=== PATIENT | female | born 1965 | race Caucasian/White ===

== ENCOUNTER → 2019-11-15 | Outpatient (REF) | payer OTHER | LOC: M SFHCLERA 15:15 | PROVIDERS: ATTEND Nurse Practitioner Family | DX: J10.1 Influenza due to other identified influenza virus with other respiratory manifestations (principal) ==

== ENCOUNTER 2020-10-02 10:40 | Emergency (ER) | payer OTHER ==
[~2020-10-02] VITALS: Ht 160 cm; Wt 86.2 kg
--- OUTSIDE RECORDS SUMMARY | 2020-10-02 10:47 | CCD ---
Author Author [facility] Address Unknown Phone Unavailable Support Name Relationship Address Phone Renuka RUTHERFORD Next Of Kin [address] [place] [address] MEKA RUTHERFORD ECON [address] [place] [address] Unavailable Re-disclosure Warning The records that you are about to access may contain information from federally-assisted alcohol or drug abuse programs. If such information is present, then the following federally mandated warning applies: This information has been disclosed to you from records protected by federal confidentiality rules (42 CFR part 2). The federal rules prohibit you from making any further disclosure of this information unless further disclosure is expressly permitted by the written consent of the person to whom it pertains or as otherwise permitted by 42 CFR part 2. A general authorization for the release of medical or other information is NOT sufficient for this purpose. The Federal rules restrict any use of the information to criminally investigate or prosecute any alcohol or drug abuse patient.The records that you are about to access may contain highly sensitive health information, the redisclosure of which is protected by Article 27-F of the [facility] Public Health law. If you continue you may have access to information: Regarding HIV / AIDS; Provided by facilities licensed or operated by the [facility] Office of Mental Health; or Provided by the [facility] Office for People With Developmental Disabilities. If such information is present, then the following [facility] mandated warning applies: This information has been disclosed to you from confidential records which are protected by state law. State law prohibits you from making any further disclosure of this information without the specific written consent of the person to whom it pertains, or as otherwise permitted by law. Any unauthorized further disclosure in violation of state law may result in a fine or fci sentence or both. A general authorization for the release of medical or other information is NOT sufficient authorization for further disc losure. Allergies and Adverse Reactions Type Description Substance Reaction Status Data Source(s ) Sulfa (for allergy use only) Sulfa (for allergy use only) Mercedes lfa (for allergy use only) Rash Active eCW1 ([facility]) Encounters Encounter Providers Location Date Indications Data Source(s ) Outpatient [address] [facility] [address] 03/28/2020 12:00:00 AM EDT eCW1 ([facility]) [facility] [address] [place] [address] 11/15/2019 12:00:00 AM EDT eCW1 ([facility]) Medications Medication Brand Name Start Date Product Form Dose Route Admi nistrative Instructions Pharmacy Instructions Status Indications Reaction Description Data Source(s) 12 HR dextromethorphan polistirex 6 MG/M L Extended Release Suspension [Delsym] Delsym 30 MG/5ML Delsym 30 MG/5ML 11/15/2019 12:00:00 AM EDT active 10 ml as needed eCW1 ([facility]) Flonase 50 MCG/ACT Flonase 50 MCG/ACT 11/15/2019 12:00:00 AM EDT active 1 spray in each nostril eCW1 ([facility]) Flonase 50 MCG/ACT Flonase 50 MCG/ACT 11/15/2019 12:00:00 AM EDT 1.0 {spray_in_each_nostril} active Flonase 50 MCG/ACT eCW1 ([facility]) cetirizine hydrochloride 10 MG Oral Tablet Cetirizine HCl 10 MG Cetirizine HCl 10 MG 11/15/2019 12:00:00 AM EDT active 1 tablet as needed eCW1 ([facility]) cetirizine hydrochloride 10 MG Oral Tablet Cetirizine HCl 10 MG Cetirizine HCl 10 MG 11/15/2019 12:00:00 AM EDT 1.0 {tablet_as_needed} active Cetirizine HCl 10 MG eCW1 ([facility]) Insurance Providers Payer name Policy type / Coverage type Policy ID Covered constitution party ID Covered constitution party's relationship to jerez Policy Jerez Plan Information [facility] [id number] Surgeries/Procedures Procedure Description Date Indications Data Source(s) STREP A ASSAY W/OPTIC 11/15/2019 12:00:00 AM EDT eCW1 ([facility]) Influenza A+B 11/15/2019 12:00:00 AM EDT eCW1 ([facility]) Results ID Date Data Source LRY HAND COMPLETE 03/28/2020 02:40:56 AM EDT eCW1 ([facility]) Name Value Range Interpretation Code Description Data Fariha rce(s) Supporting Document(s) LRY HAND COMPLETE eCW1 ([facility]) ID Date Data Source GATS (NEGATIVE STREP SCREEN) 11/15/2019 12:00:00 AM EDT eCW1 ([facility]) Name Value Range Interpretation Code Description Data Fariha rce(s) Supporting Document(s) FULL REPORT IN LAB NOTES (eCW and [facility]). GATS CULTURE (NEG STREP SCR) eCW1 ([facility]) Procedure Social History Code Duration Value Status Description Data Source(s ) Smoking 03/28/2020 12:00:00 AM EDT Never Smoker completed Never S moker eCW1 ([facility]) Vital Signs ID Date Data Source UNK Name Value Range Interpretation Code Description Data Source(s) Diastolic blood pressure 110 mm[Hg] 110 mm[Hg] eCW1 ([facility]) Systolic blood pressure 156 mm[Hg] 156 mm[Hg] e CW1 ([facility]) Body temperature 97.8 [degF] 97.8 [degF] eCW1 ( [facility]) Respiratory rate 16 /min 16 /min eCW1 ([facility]) Heart rate 75 /min 75 /min eCW1 ([facility]) Body mass index (BMI) [Ratio] 34.76 kg/m2 34.76 kg/m2 eCW1 ([facility]) Body height 61 [in_i] 61 [in_i] eCW1 ([facility]) Body weight 184 [lb_av] 184 [lb_av] eCW1 ([facility]) Diastolic blood pressure 82 mm[Hg] 82 mm[Hg] eCW1 ([facility]) Systolic blood pressure 136 mm[Hg] 136 mm[Hg] e CW1 ([facility]) Body temperature 101.6 [degF] 101.6 [degF] eCW1 ([facility]) Respiratory rate 18 /min 18 /min eCW1 ([facility]) Heart rate 88 /min 88 /min eCW1 ([facility]) Body mass index (BMI) [Ratio] 32.12 kg/m2 32.12 kg/m2 eCW1 ([facility]) Body height 61 [in_us] 61 [in_us] eCW1 ([facility]) Body weight Measured 170 [lb_av] 170 [lb_av] eC W1 ([facility]) Patient Treatment Plan of Care Planned Activity Planned Date Details Description Data Source (s) cetirizine hydrochloride 10 MG Oral Tablet 11/15/2019 12:00:00 AM E DT eCW1 ([facility]) Flonase 50 MCG/ACT 11/15/2019 12:00:00 AM EDT eCW1 ([facility]) 12 HR dextromethorphan polistirex 6 MG/ML Extended Rel ease Suspension [Delsym] 11/15/2019 12:00:00 AM EDT eCW1 ([facility])
--- NOTE | 2020-10-02 11:16 | REP ---
INDICATION: CHEST PAIN COMPARISON: None. TECHNIQUE: Portable AP view of the chest FINDINGS: The mediastinum and cardiac silhouette are within normal limits for portable technique. The lung salinas are clear without acute consolidation, effusion, or pneumothorax. Skeletal structures are intact. IMPRESSION: No acute cardiopulmonary process appreciated. <Electronically signed by Kumar Mcallister > 10/02/20 [id number]
[2020-10-02 11:36] LABS: BASO % 0.5 % (0.0-1.0); HEMATOCRIT 41.3 % (36.0-47.0); HEMOGLOBIN 13.4 g/dl (12.0-15.5); LYMPH # 1.2 10^3/uL (1.5-5.0); LYMPH % 29.2 % (24.0-44.0); MEAN CORPUSCULAR HEMOGLOBIN 29.5 pg (27.0-33.0); MEAN CORPUSCULAR HGB CONC 32.4 g/dl (32.0-36.5); MONO # 0.4 10^3/uL (0.0-0.8); MONO % 9.6 % (0.0-5.0); NEUTROPHILS # 2.4 10^3/uL (1.5-8.5); NEUTROPHILS % 59.4 % (36.0-66.0); PLATELET COUNT, AUTOMATED 220 10^3/uL (150-450); RED BLOOD COUNT 4.54 10^6/uL (4.00-5.40)
--- OUTSIDE RECORDS SUMMARY | 2020-10-02 11:43 | CCD ---
Author Author [facility] Address Unknown Phone Unavailable Support Name Relationship Address Phone Renuka RUTHERFORD Next Of Kin [address] [place] [address] MEKA RUTHERFORD ECON [address] [place] [address] Unavailable Re-disclosure Warning The records that you [...] is protected by Article 27-F of the [facility] Public Health law. If you continue you may have access to information: Regarding HIV / AIDS; Provided by facilities licensed or operated by the [facility] Office of Mental Health; or Provided by the [facility] Office for People With Developmental Disabilities. If such information is present, then the following [facility] mandated warning applies: This information has been [...] law may result in a fine or prison sentence or both. A general authorization for the release of medical or other information is NOT sufficient authorization for further disc losure. Allergies and Adverse Reactions Type Description Substance Reaction Status Data Source(s ) Sulfa (for allergy use only) Sulfa (for allergy use only) Mercedes lfa (for allergy use only) Rash Active eCW1 ([facility]) Encounters Encounter Providers Location Date Indications Data Source(s ) Outpatient [address] [facility] [address] 03/28/2020 12:00:00 AM EDT eCW1 ([facility]) [facility] [address] [place] [address] 11/15/2019 12:00:00 AM EDT [facility] Medications Medication Brand Name Start Date Product Form Dose Route Admi nistrative Instructions Pharmacy Instructions Status Indications Reaction Description Data Source(s) 12 HR dextromethorphan polistirex 6 MG/M L Extended Release Suspension [Delsym] Delsym 30 MG/5ML Delsym 30 MG/5ML 11/15/2019 12:00:00 AM EDT active 10 ml as needed eCW1 ([facility]) Flonase 50 MCG/ACT Flonase 50 MCG/ACT 11/15/2019 12:00:00 AM EDT active 1 spray in each nostril eCW1 ([facility]) Flonase 50 MCG/ACT Flonase 50 MCG/ACT 11/15/2019 12:00:00 AM EDT 1.0 {spray_in_each_nostril} active Flonase 50 MCG/ACT eCW1 ([facility]) cetirizine hydrochloride 10 MG Oral Tablet Cetirizine HCl 10 MG Cetirizine HCl 10 MG 11/15/2019 12:00:00 AM EDT active 1 tablet as needed eCW1 ([facility]) cetirizine hydrochloride 10 MG Oral Tablet Cetirizine HCl 10 MG Cetirizine HCl 10 MG 11/15/2019 12:00:00 AM EDT 1.0 {tablet_as_needed} active Cetirizine HCl 10 MG eCW1 ([facility]) Insurance Providers Payer name Policy type / Coverage type Policy ID Covered alliance party ID Covered alliance party's relationship to jerez Policy Jerez Plan Information [facility] [id number] Surgeries/Procedures Procedure Description Date Indications Data Source(s) STREP A ASSAY W/OPTIC 11/15/2019 12:00:00 AM EDT eCW1 ([facility]) Influenza A+B 11/15/2019 12:00:00 AM EDT eCW1 ([facility]) Results ID Date Data Source LRY HAND COMPLETE 03/28/2020 02:40:56 AM EDT eCW1 ([facility]) Name Value Range Interpretation Code Description Data Fariha rce(s) Supporting Document(s) LRY HAND COMPLETE eCW1 ([facility]) ID Date Data Source GATS (NEGATIVE STREP SCREEN) 11/15/2019 12:00:00 AM EDT eCW1 ([facility]) Name Value Range Interpretation Code Description Data Fariha rce(s) Supporting Document(s) FULL REPORT IN LAB NOTES (eCW and [facility]). GATS CULTURE (NEG STREP SCR) eCW1 ([facility]) Procedure Social History Code Duration Value Status Description Data Source(s ) Smoking 03/28/2020 12:00:00 AM EDT Never Smoker completed Never S moker eCW1 ([facility]) Vital Signs ID Date Data Source UNK Name Value Range Interpretation Code Description Data Source(s) Diastolic blood pressure 110 mm[Hg] 110 mm[Hg] eCW1 ([facility]) Systolic blood pressure 156 mm[Hg] 156 mm[Hg] e CW1 ([facility]) Body temperature 97.8 [degF] 97.8 [degF] eCW1 ( [facility]) Respiratory rate 16 /min 16 /min eCW1 ([facility]) Heart rate 75 /min 75 /min eCW1 ([facility]) Body mass index (BMI) [Ratio] 34.76 kg/m2 34.76 kg/m2 eCW1 ([facility]) Body height 61 [in_i] 61 [in_i] eCW1 ([facility]) Body weight 184 [lb_av] 184 [lb_av] eCW1 ([facility]) Diastolic blood pressure 82 mm[Hg] 82 mm[Hg] eCW1 ([facility]) Systolic blood pressure 136 mm[Hg] 136 mm[Hg] e CW1 ([facility]) Body temperature 101.6 [degF] 101.6 [degF] eCW1 ([facility]) Respiratory rate 18 /min 18 /min eCW1 ([facility]) Heart rate 88 /min 88 /min eCW1 ([facility]) Body mass index (BMI) [Ratio] 32.12 kg/m2 32.12 kg/m2 eCW1 ([facility]) Body height 61 [in_us] 61 [in_us] eCW1 ([facility]) Body weight Measured 170 [lb_av] 170 [lb_av] eC W1 ([facility]) Patient Treatment Plan of Care Planned Activity Planned Date Details Description Data Source (s) cetirizine hydrochloride 10 MG Oral Tablet 11/15/2019 12:00:00 AM E DT eCW1 ([facility]) Flonase 50 MCG/ACT 11/15/2019 12:00:00 AM EDT eCW1 ([facility]) 12 HR dextromethorphan polistirex 6 MG/ML Extended Rel ease Suspension [Delsym] 11/15/2019 12:00:00 AM EDT eCW1 ([facility])
[2020-10-02 11:51] LABS: INR 0.94; PROTHROMBIN TIME 12.8 SECONDS (12.5-14.3)
[2020-10-02 11:52] LABS: PARTIAL THROMBOPLASTIN TIME 23.6 SECONDS (24.2-38.5)
[2020-10-02 12:10] LABS: ERYTHROCYTE SEDIMENTATION RATE 18 mm/hr (0-30)
[2020-10-02 12:11] LABS: ALBUMIN 4.1 GM/DL (3.2-5.2); BILIRUBIN,DIRECT < 0.1 MG/DL (0.0-0.2); BILIRUBIN,TOTAL 0.4 MG/DL (0.2-1.0); BLOOD UREA NITROGEN 13 MG/DL (7-18); CALCIUM LEVEL 9.9 MG/DL (8.5-10.1); CARBON DIOXIDE LEVEL 28 MEQ/L (21-32); CHLORIDE LEVEL 103 MEQ/L (98-107); CREATININE FOR GFR 0.72 MG/DL (0.55-1.30); GLOMERULAR FILTRATION RATE > 60.0 (>51); GLUCOSE, FASTING 103 MG/DL (70-100); LIPASE 110 U/L (73-393); POTASSIUM SERUM 4.4 MEQ/L (3.5-5.1); SODIUM LEVEL 140 MEQ/L (136-145); TOTAL PROTEIN 7.5 GM/DL (6.4-8.2); TROPONIN I < 0.02 NG/ML (< 0.10)
[2020-10-02 12:44] LABS: ALT/SGPT 27 U/L (12-78); CK-MB VALUE MASS < 1.0 NG/ML (<3.6); CPK CREATINE PHOSPHOKINASE 63 U/L (26-192); FREE T4 0.85 NG/DL (0.76-1.46); MB/CK RELATIVE INDEX 1.59 (< OR =4); NT-PRO BNP 59 PG/ML (<125)
[2020-10-02 13:10] LABS: MAGNESIUM LEVEL 2.3 MG/DL (1.8-2.4)
[2020-10-02 14:02] VITALS: BP 131/73
--- NOTE | 2020-10-02 14:53 | ECGEPIP ---
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
== END 2020-10-02 14:13 | disposition home or self-care (01) ==
LOC: M ED 10:40
DX: R00.2 Palpitations (principal); Z88.2 Allergy status to sulfonamides

== ENCOUNTER → 2022-01-07 | Outpatient (CLI) | payer OTHER ==
[2022-01-07 11:55] LABS: CORTISOL AM 20.6 UG/DL (4.3-22.4); TOTAL 25(OH) VITAMIN D 32.1 NG/ML (30.0-100.0)
== END ==
LOC: M WUC 08:02
PROVIDERS: ATTEND Family Medicine
DX: R60.9 Edema, unspecified (principal); R20.0 Anesthesia of skin; E55.9 Vitamin D deficiency, unspecified; R53.83 Other fatigue

== ENCOUNTER → 2022-10-03 | Outpatient (CLI) | payer OTHER | LOC: M SLEEP 20:00 | PROVIDERS: ATTEND Nurse Practitioner Family | DX: G47.33 Obstructive sleep apnea (adult) (pediatric) (principal) ==

== ENCOUNTER → 2023-02-05 | Outpatient (CLI) | payer OTHER ==
[2023-02-09 13:08] LABS: D002-IGE D FARINAE MITE <0.10 kU/L (Class 0); E001-IGE CAT EPITHELIUM/DANDER <0.10 kU/L (Class 0); E005-IGE DOG DANDER/HAIR/EPITH <0.10 kU/L (Class 0); F201-IGE PECAN NUT <0.10 kU/L (Class 0); G002-IGE BERMUDA GRASS <0.10 kU/L (Class 0); G006-IGE TIMOTHY GRASS <0.10 kU/L (Class 0); H001-IGE HOUSE DUST, GREER LAB <0.10 kU/L (Class 0); M002-IGE CLADOSPORIUM herbarum <0.10 kU/L (Class 0); M003-IGE D pteronyssinus <0.10 kU/L (Class 0); M006-IGE ALTERNARIA alternata <0.10 kU/L (Class 0); T001-IGE MAPLE/BOX ELDER <0.10 kU/L (Class 0); T003-IGE COMMON SILVER BIRCH <0.10 kU/L (Class 0); T007-IGE OAK, WHITE <0.10 kU/L (Class 0); T008-IGE ELM, AMERICAN WHITE <0.10 kU/L (Class 0); T011-IGE MAPLE LEAF SYCAMORE <0.10 kU/L (Class 0); T015-IGE ASH, WHITE <0.10 kU/L (Class 0); W001-IGE RAGWEED, SHORT <0.10 kU/L (Class 0); W003-IGE RAGWEED, GIANT <0.10 kU/L (Class 0); W006-IGE MUGWORT <0.10 kU/L (Class 0); W009-IGE PLANTAIN,ENGLISH <0.10 kU/L (Class 0); W010-IGE LAMB'S QUARTER <0.10 kU/L (Class 0)
== END ==
LOC: M WUC 09:12
PROVIDERS: ATTEND Otolaryngology
DX: J30.89 Other allergic rhinitis (principal)

== ENCOUNTER → 2023-09-14 | Outpatient (CLI) | payer OTHER ==
[2023-09-14 16:27] LABS: BASO % 0.5 % (0.0-1.0); EOS # 0.1 10^3/uL (0.0-0.5); EOS % 1.3 % (0.0-3.0); HEMATOCRIT 42.9 % (36.0-47.0); HEMOGLOBIN 13.7 g/dl (12.0-15.5); LYMPH # 2.3 10^3/uL (1.5-5.0); LYMPH % 38.8 % (24.0-44.0); MEAN CORPUSCULAR HEMOGLOBIN 29.1 pg (27.0-33.0); MEAN CORPUSCULAR HGB CONC 31.9 g/dl (32.0-36.5); MEAN CORPUSCULAR VOLUME 91.1 fl (80.0-96.0); MONO # 0.5 10^3/uL (0.0-0.8); MONO % 7.8 % (2.0-8.0); NEUTROPHILS # 3.1 10^3/uL (1.5-8.5); NEUTROPHILS % 51.4 % (36.0-66.0); PLATELET COUNT, AUTOMATED 268 10^3/uL (150-450); RED BLOOD COUNT 4.71 10^6/uL (4.00-5.40); WHITE BLOOD COUNT 5.9 10^3/uL (4.0-10.0)
[2023-09-14 16:34] LABS: ALBUMIN 3.9 G/DL (3.2-5.2); ALKALINE PHOSPHATASE 114 U/L (46-116); ALT/SGPT 29 U/L (7.0-40); AST/SGOT 21 U/L (<34); BILIRUBIN,TOTAL 0.6 MG/DL (0.3-1.2); BLOOD UREA NITROGEN 14 MG/DL (9-23); CALCIUM LEVEL 9.4 MG/DL (8.5-10.1); CARBON DIOXIDE LEVEL 28 MMOL/L (20-31); CHLORIDE LEVEL 108 MMOL/L (98-107); CREATININE FOR GFR 0.64 MG/DL (0.55-1.30); GLOMERULAR FILTRATION RATE > 60.0 (>51); GLUCOSE, FASTING 102 MG/DL (60-100); SODIUM LEVEL 141 MMOL/L (136-145); TOTAL PROTEIN 7.1 G/DL (5.7-8.2)
[2023-09-14 16:36] LABS: THYROID STIMULATING HORMONE 2.937 uIU/ML (0.55-4.78)
== END ==
LOC: M WUC 12:13
PROVIDERS: ATTEND Internal Medicine
DX: R63.5 Abnormal weight gain (principal)